=== PATIENT | female | born 1960 | race Two or more races ===

== ENCOUNTER 2021-10-23 08:00 | Outpatient (CLI) | payer OTHER | END 2021-10-23 08:30 | disposition home or self-care (01) | LOC: PPH VACUNA 08:00 | PROVIDERS: ATTEND Emergency Medicine Pediatric Emergency Medicine | DX: Z23 Encounter for immunization (principal) ==

== ENCOUNTER 2022-01-16 08:25 | Outpatient (CLI) | payer OTHER | END 2022-01-16 08:37 | disposition home or self-care (01) | LOC: RAD 08:25 | PROVIDERS: ATTEND Internal Medicine Cardiovascular Disease | DX: I10 Essential (primary) hypertension (principal) ==

== ENCOUNTER 2022-10-31 09:35 | Outpatient (CLI) | payer OTHER | END 2022-10-31 09:45 | disposition home or self-care (01) | LOC: PPH VACUNA 09:35 | PROVIDERS: ATTEND Emergency Medicine Pediatric Emergency Medicine | DX: Z23 Encounter for immunization (principal) ==

== ENCOUNTER 2023-10-07 11:50 | Outpatient (CLI) | payer OTHER | END 2023-10-07 14:24 | disposition home or self-care (01) | LOC: RAD 11:50 | PROVIDERS: ATTEND Internal Medicine Cardiovascular Disease | DX: M12.9 Arthropathy, unspecified (principal) ==

== ENCOUNTER 2024-02-23 14:26 | Outpatient (CLI) | payer OTHER | END 2024-02-23 14:33 | disposition home or self-care (01) | LOC: SONOGRAMA 14:26 | PROVIDERS: ATTEND Specialist | DX: R10.2 Pelvic and perineal pain (principal) ==

== ENCOUNTER 2025-01-28 08:23 | Outpatient (CLI) | payer OTHER | END 2025-01-28 08:30 | disposition home or self-care (01) | LOC: TOM 08:23 | PROVIDERS: ATTEND Internal Medicine Gastroenterology | DX: R10.9 Unspecified abdominal pain (principal) | CPT/HCPCS: 74178; Q9965 ==

== ENCOUNTER 2025-02-15 07:44 | Outpatient (CLI) | payer OTHER | END 2025-02-15 07:47 | disposition home or self-care (01) | LOC: SONOGRAMA 07:44 | PROVIDERS: ATTEND Internal Medicine Gastroenterology | DX: K76.89 Other specified diseases of liver (principal); N85.00 Endometrial hyperplasia, unspecified ==

== ENCOUNTER 2025-06-03 07:06 | Outpatient (CLI) | payer OTHER | END 2025-06-03 07:08 | disposition home or self-care (01) | LOC: SONOGRAMA 07:06 | PROVIDERS: ATTEND Urology | DX: R31.21 Asymptomatic microscopic hematuria (principal) ==